=== PATIENT | female | born 1950 | race Two or more races ===

== ENCOUNTER 2019-09-21 06:18 | Day surgery (SDC) | payer OTHER ==
[~2019-09-21 06:18] MED LIST: FORTAMET1000 MG PO; HUMULIN 70100 UNIT/2; LOTENSIN20 MG PO; OMEPRAZOLE20 MG PO; PERCOCET 5-3251 EACH PO; PROBIOTIC & AC1 EACH PO; [UNRECOGNIZED DRUG - OTHER]
== END 2019-09-21 13:30 | disposition home or self-care (01) ==
LOC: AMB-ENDOS 06:18
DX: D12.3 Benign neoplasm of transverse colon (principal)

== ENCOUNTER 2020-06-13 06:55 | Day surgery (SDC) | payer OTHER | END 2020-06-13 11:00 | disposition home or self-care (01) | LOC: AMB-ENDOS 06:55 | PROVIDERS: ATTEND Surgery | DX: D12.3 Benign neoplasm of transverse colon (principal); Z20.828 Contact with and (suspected) exposure to other viral communicable diseases ==